=== PATIENT | male | born 1980 | race Two or more races ===

== ENCOUNTER 2019-03-13 11:00 | Emergency (ER) | payer OTHER ==
--- OUTSIDE RECORDS SUMMARY | 2019-03-13 11:05 | XMS REPORT | Continuity of Care Document ---
:1980 External Reference #:[id number] Author Name Shanthi Rosario MD (transmitted by agent of provider Flory Wells) Address [address], [place] [address] Care Team Providers Name Role Phone Barrington Rodriguez MD - Internal Care Team Information Detail Supervisor [phone] Medicine Mitch Peck MD - Care Team Information Detail Supervisor [phone] Ophthalmology Barrington Rodriguez MD - Internal Care Team Information Detail Supervisor Medicine Problems Active Problems Provider Date Mixed hyperlipidemia Barrington Rodriguez M.D.,FACP Onset: 02/24/2017 Social History Type Date Description Comments Sex Unknown ETOH Use 01/05/2017 Denies alcohol use Tobacco Use Start: Unknown Patient has never smoked Recreational Drug Use 01/05/2017 Never Used Drugs Smoking Status Reviewed: 02/27/19 Patient has never smoked Exercise Type/Frequency 01/05/2017 Exercises regularly Allergies, Adverse Reactions, Alerts Description No Known Drug Allergies Medications Active Medications SIG Qnty Indications Ordering Provider Date Ibu take one tablet 90tabs Barrington Wilder 05/23/2018 600mg Tablets by mouth every 8 Georgina Rodriguez,FACP hours for 2 wks then prn Aspirin 81 Low Dose chew 1 tablet by 90units Barrington Wilder 05/23/2018 mouth every day Georgina Rodriguez,FACP 81mg Chewtabs Multi For Him 1 by mouth every Unknown Capsules day Immunizations CPT Code Status Date Vaccine Reaction Lot # [id number] Given 09/12/2018 Hepatitis B Vaccine Adult 3rd Hep B. No immediate [id number] Dosage reaction noted. 87678 Given 05/10/2018 Varicella (Chicken Pox) no immediate reaction [id number] Immunization noted 77247 Given 05/10/2018 Measles Mumps And Rubella no immediate reaction [id number] MMR noted 50784 Given 04/04/2018 Hepatitis B Vaccine Adult [id number] Dosage 75614 Given 04/04/2018 Influenza Virus Vaccine, [id number] Quadrivalent, Split, Preservative Free 53538 Given 03/09/2018 Varicella (Chicken Pox) [id number] Immunization 46444 Given 03/09/2018 Tetanus And Diptheria (Td) [id number] For Adult Use Preservative Free 19246 Given 01/19/2018 Hepatitis B Vaccine Adult [id number] Dosage 01730 Given 01/12/2018 Tdap - [id number] Tetanus/Diptheria/Acellular Pertussis 00535 Given 01/12/2018 Measles Mumps And Rubella [id number] MMR Vital Signs Date Vital Result Comment 02/27/2019 8:32am Height 66 inches 5'6" Weight 145.00 lb Heart Rate 57 /min BP Systolic Sitting 118 mmHg Rue BP Diastolic Sitting 68 mmHg Rue O2 % BldC Oximetry 99 % BMI (Body Mass Index) 23.4 kg/m2 05/23/2018 11:04am Height 66 inches 5'6" Weight 144.00 lb Heart Rate 57 /min BP Systolic Sitting 120 mmHg BP Diastolic Sitting 80 mmHg Body Temperature 97.3 F O2 % BldC Oximetry 98 % BMI (Body Mass Index) 23.2 kg/m2 Results Description No Information Available Procedures Description No Information Available Medical Devices Description No Information Available Encounters Description No Information Available Assessments Date Code Description Provider 02/27/2019 L90.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 Shanthi Rosario MD 02/27/2019 F52.4 Premature ejaculation Shanthi Rosario MD 09/12/2018 Z23 Encounter for immunization Nurse Visit [place] Plan of Treatment Future Appointment(s):05/13/2019 11:20 am - [facility] Shanthi Rosario MDL90.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Follow up:PE NovF52.4 Premature ejaculationReferral:John Moss MD, Urology Functional Status Description No Information Available Mental Status Description No Information Available Referrals Refer to Reason for Referral Status Appt Date John Moss MD pt with premature ejaculation desires treatment Created [address] [place] [address] [place] [address] [phone]
[2019-03-13 11:22] VITALS: BP 132/82
--- NOTE | 2019-03-13 12:01 | UC ---
Back Pain HPI - HPI Summary HPI Summary: 38-year-old male presents with 3 day history of right sided low back pain. States pain is constant and nonradiating. Worsens with extended sitting. Patient does note some urinary frequency. Denies fever, rash, chills, abdominal pain, nausea, vomiting, dysuria, urgency, hematuria, weakness, numbness, or tingling, or loss of bowel or bladder control. - History of Current Complaint Chief Complaint: UCGU Stated Complaint: BACK PAIN Time Seen by Provider: 03/13/19 11:52 Hx Obtained From: Patient Pain Intensity: 5 - Allergies/Home Medications Allergies/Adverse Reactions: Allergies Allergy/AdvReac Type Severity Reaction Status Date / Time No Known Allergies Allergy Verified 03/13/19 11:22 PMH/Surg Hx/FS Hx/Imm Hx Previously Healthy: Yes - Denies significant PMH - Surgical History Surgical History: Yes Surgery Procedure, Year, and Place: 1999 - Family History Known Family History: Positive: Cardiac Disease - Social History Occupation: Unemployed Lives: With Family Alcohol Use: Weekly Substance Use Type: None Smoking Status (MU): Never Smoked Tobacco Review of Systems All Other Systems Reviewed And Are Negative: Yes Constitutional: Negative: Fever, Chills Skin: Negative: Rash Respiratory: Positive: Negative Cardiovascular: Positive: Negative Gastrointestinal: Negative: Abdominal Pain, Vomiting, Nausea Genitourinary: Positive: Frequency. Negative: Dysuria, Hematuria, Urgency, Vaginal/Penile Discharge Musculoskeletal: Positive: Other: - See HPI Neurological: Positive: Negative Is Patient Immunocompromised?: No Physical Exam - Summary Physical Exam Summary: GENERAL APPEARANCE: Well developed, well nourished, alert and cooperative, and appears to be in no acute distress. CARDIAC: Normal S1 and S2. No S3, S4 or murmurs. Rhythm is regular. There is no peripheral edema, cyanosis or pallor. Extremities are warm and well perfused. Capillary refill is less than 2 seconds. Peripheral pulses intact. LUNGS: Clear to auscultation without rales, rhonchi, wheezing or diminished breath sounds. ABDOMEN: Positive bowel sounds. Soft, nondistended, nontender. No guarding or rebound. No masses or hepatosplenomegally. No CVA tenderness. MUSKULOSKELETAL: ROM intact to all extremities. No joint erythema or tenderness. Normal muscular development. Normal gait. BACK: Examination of the spine reveals no midline spinal deformity or tenderness , right paraspinous soft tissue tenderness with muscular spasm. NEUROLOGICAL: Strength and sensation symmetric and intact to lower extremities. SKIN: Skin normal color, texture and turgor with no lesions or eruptions. Triage Information Reviewed: Yes Vital Signs: Initial Vital Signs Temp 98.1 F 03/13/19 11:16 Pulse 64 03/13/19 11:16 Resp 18 03/13/19 11:16 BP 132/82 03/13/19 11:16 Pulse Ox 98 03/13/19 11:16 Vital Signs Reviewed: Yes Back Pain Course/Dx - Course Course Of Treatment: 38-year-old male presents with 3 day history of right sided low back pain. States pain is constant and nonradiating. Worsens with extended sitting. Patient does note some urinary frequency. Denies fever, rash, chills, abdominal pain, nausea, vomiting, dysuria, urgency, hematuria, weakness, numbness, or tingling, or loss of bowel or bladder control. Afebrile. Mildly hypertensive otherwise vital signs stable. Patient had no midline spinal deformity or tenderness, right paraspinous soft tissue tenderness with muscular spasm, and otherwise unremarkable exam. Imcyj-ni-mgei urinalysis was normal. Reviewed results with the patient discussed that his pain is most likely musculoskeletal in origin. Recommending conservative treatment for acute low back pain including naproxen 500 mg every 12 hours 5 days then every 12 hours as needed, cyclobenzaprine 10 mg 1 tablet every 8 hours as needed for severe pain or spasm, and heat therapy. He is to follow-up with his primary care provider in 3-5 days if symptoms are not improving. Anticipatory guidance and warning symptoms were reviewed with the patient. Verbalizes understanding and agrees with plan of care. - Differential Dx/Diagnosis Differential Diagnosis/HQI/PQRI: Arthritis, Herniated Disc, Renal Colic, Strain Provider Diagnosis: Acute right-sided low back pain Discharge ED - Sign-Out/Discharge Documenting (check all that apply): Patient Departure All imaging exams completed and their final reports reviewed: No Studies - Discharge Plan Condition: Stable Disposition: HOME Prescriptions: Cyclobenzaprine HCl 10 mg PO Q8HR PRN #15 tablet PRN Reason: Spasms - Back Naproxen [Naproxen 500 mg tab] 500 mg PO Q12HR #30 tablet Patient Education Materials: Acute Low Back Pain (ED) Referrals: Barrington Rodriguez MD [Primary Care Provider] - 3 Days Additional Instructions: The urine test performed in the clinic today was normal. Rest as much as possible. It is important to remain as active as possible with low back pain however you should avoid heavy lifting or strenuous activities until you are pain-free. Apply a heating pad to the affected area for 15-20 minutes at least 4 times a day to help with the pain and relax that muscles. Take naproxen 500 mg 1 tablet every 12 hours with food for the next 5 days then take every 12 hours as needed for pain. Do not take any other anti-inflammatory medications such as ibuprofen (Advil, Mootrin), naproxen (Aleve), or aspirin while taking this medication. Take cyclobenzaprine 10 mg 1 tablet every 8 hours as need for severe pain or spasm. This medication will cause drowsiness to do not take and drive or operate machinery. Follow up your primary care provider in 3-5 days if symptoms do not improve. Seek immediate medical attention if you have severe pain not managed with pain medication, you are unable to walk or bear any weight, develop weakness, numbness, or tingling in the legs, lose control of your bowel or bladder, or have any worsening of symptoms. - Billing Disposition and Condition Condition: STABLE Disposition: Home
== END 2019-03-13 12:26 | disposition home or self-care (01) ==
LOC: UCEAST 11:00
DX: M54.5 Low back pain (principal)
CPT/HCPCS: 81003; 99211; G0463